=== PATIENT | female | born 1955 | race African-American/Black ===

== ENCOUNTER 2020-01-11 12:47 | Emergency (ER) | payer MEDICARE, MEDICAID ==
[~2020-01-11] VITALS: Ht 167.6 cm; Wt 98.0 kg
[2020-01-11 12:56] VITALS: BP 162/66
== END 2020-01-11 16:27 | disposition left against medical advice (07) ==
LOC: ER 13:11
DX: M54.5 Low back pain (principal); Z53.21 Procedure and treatment not carried out due to patient leaving prior to being seen by health care provider

== ENCOUNTER 2020-12-20 10:18 | Emergency (ER) | payer MEDICARE, MEDICAID ==
[~2020-12-20] VITALS: Ht 167.6 cm; Wt 98.8 kg
[2020-12-20 10:21] VITALS: BP 149/61
[2020-12-20] MEDS ORDERED: GABAPENTIN 300MG CAPSULE PO ONE (12:00)
[2020-12-20] MEDS ORDERED: ACETAMINOPHEN 325MG TABLET PO ONE (12:00)
== END 2020-12-20 13:08 | disposition home or self-care (01) ==
LOC: ER 10:18
DX: M79.662 Pain in left lower leg (principal); M54.5 Low back pain; I10 Essential (primary) hypertension; E78.00 Pure hypercholesterolemia, unspecified
CPT/HCPCS: 73590; 99283

== ENCOUNTER 2023-10-30 13:49 | Emergency (ER) | payer MEDICARE, MEDICAID ==
[~2023-10-30] VITALS: Ht 167.6 cm; Wt 99.8 kg
[2023-10-30 14:07] VITALS: O2SAT 97
[2023-10-30] MEDS: LIDOCAINE 5% PATCH TOP SCH (14:37)
[2023-10-30 16:09] VITALS: BP 130/70; PULSE 80; RESP 16; TEMP 98.7
== END 2023-10-30 16:10 | disposition home or self-care (01) ==
LOC: ER 13:49
DX: M54.31 Sciatica, right side (principal); E78.00 Pure hypercholesterolemia, unspecified; I10 Essential (primary) hypertension; E78.5 Hyperlipidemia, unspecified; R73.03 Prediabetes
CPT/HCPCS: 99282